=== PATIENT | male | born 1975 | race Caucasian/White ===

== ENCOUNTER 2023-09-30 05:33 | Day surgery (SDC) | payer OTHER, SELFPAY ==
[2023-09-30] VITALS (8 sets, daily range): BP systolic 105–118; BP diastolic 67–80; PULSE 53–72; RESP 16; TEMP 36.2–36.6; O2SAT 94–100
[2023-09-30] MEDS: Lactated Ringers 1,000 ML 15 ML IV (05:54)
--- NOTE | 2023-09-30 06:35 | PCM.PRE.AN2 ---
ASA Classification* ASA Classification ASA Classification: 2 Assessment & Plan Anesthesia* Anesthesia Assessment Anesthesia Assessment: Discussed sedation and/or anesthesia options, risks, benefits, and alternatives with patient/parents/legal guardian/POA. Questions invited. The patient/parents/legal guardian/POA seems to understand and agrees to proceed with anesthesia plan. Reviewed the physical assessment, medical history, allergy history and patient home medications list prior to surgery/procedure/anesthetic and documented any changes. Performed airway and anesthesia risk assessments. 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 When Was Last Pacemaker Check QUESTION #4 FULL TEXT: You/Your Family Experience fever (hyperthermia) with Anesthesia Last Oral Intake Last Oral intake: Last Oral Intake NPO since 22:00 09/30/23 05:52 Meds taken in AM with sips of water? Meds patient instructed to take am of surgery PONV PONV - insulation sprayer: PONV - insulation sprayer Female No 09/25/23 13:08 HX of Motion Sickness No 09/25/23 13:08 HX of N/V After Surgery No 09/25/23 13:08 Non-Smoker Yes 09/25/23 13:08 Duration of Surgery greater No 09/25/23 13:08 than 60 minutes Number of Risk Factors 1 09/25/23 13:08 PONV Score Low Risk 09/25/23 13:08 Height & Weight Height & Weight: Anesthesia: Height & Weight Height 6 ft 5 in 09/30/23 05:52 Respiratory Assessment Respiratory Assessment - insulation sprayer: Respiratory Tract Infection Hx - insulation sprayer Hx Respiratory Tract Infection No 09/25/23 13:08 STOP Sleep Apnea STOP Sleep Apnea - insulation sprayer: STOP Sleep Apnea - insulation sprayer Hx Hypertension No 09/25/23 13:08 Hx Sleep Apnea No 09/25/23 13:08 CPAP BIPAP Do you snore loudly (louder No 09/25/23 13:08 than talking or can be heard Do you often feel tired/ No 09/25/23 13:08 fatigued/ sleepy during daytime? Has anyone observed you stop No 09/25/23 13:08 breathing during sleep? STOP Results Negative 09/25/23 13:08 QUESTION #5 FULL TEXT : Do you snore loudly (louder than talking or can be heard through closed doors)? 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 Specify any problems Hx of Preganancy in last 3 N/A 09/25/23 13:08 Months Nurse Filling Out Transfusion NBUCHER 09/25/23 13:08 & Questions: Date: 09/25/23 09/25/23 13:08 Time: 13:09 09/25/23 13:08 Patient unable to answer at this time (ie. confused, unrespo /Reproduction History /Reproductive History - insulation sprayer: /Reproductive Hx- insulation sprayer Hx Now No 09/25/23 13:08 Gestational Age (in weeks): EDC: Hx Hx Para Hx Section SAB No 09/25/23 13:08 Active Medications Active Medications: Current Medications Generic Name Dose Route Start Last Admin Trade Name Freq PRN Reason Stop Dose Admin Lactated Ringer's 1,000 mls @ 15 mls/hr 09/30/23 05:45 09/30/23 05:54 IV 15 mls/hr .Q48H JAGUAR Administration PFSH Medical History Non-smoker HTN (hypertension) Anal fissure Home Medications ?Medication ?Instructions ?Recorded ?Last Taken ?Type NK 08/13/23 Unknown History Allergy/AdvReac Type Severity Reaction Status Date / Time No Known Allergies Allergy Verified 09/30/23 05:52 Surgical History Hx of colonoscopy Social History current occupational status: employed Smoking Status: Never smoker substance use type: does not use Review of Systems (Anesthesia) ROS Narrative System reviewed and no additional complaints, except as documented.
--- NOTE | 2023-09-30 06:39 | PCM.HP.STD ---
[facility] - General General Date of Admission: 09/30/23 Date of Service: 09/30/23 Chief Complaint: Screening colonoscopy HPI Narrative LEYDI HOWELL, is a 47 M who presents today for screening colonoscopy. He has no significant past medical history and does not take any medicines on a daily basis. He does not have any abdominal pain, cramping, bleeding, chest pain, shortness of breath. Overall is in very good health. [facility] Medical History Non-smoker HTN (hypertension) Anal fissure Home Medications ?Medication ?Instructions ?Recorded ?Last Taken ?Type NK 08/13/23 Unknown History Allergy/AdvReac Type Severity Reaction Status Date / Time No Known Allergies Allergy Verified 09/30/23 05:52 Surgical History Hx of colonoscopy Social History current occupational status: employed Smoking Status: Never smoker substance use type: does not use ROS Review of Systems ROS Unobtainable: other Constitutional Constitutional: Denies fatigue, fever(s), poor appetite, weight gain or weight loss ENT HEENT: Denies mouth lesions Cardiovascular Cardiovascular: Denies abdominal bloating, abdominal edema or abdominal pain Respiratory/Chest Respiratory/Chest: Denies change in mental status, change in phlegm color, chest congestion or chest tightness Gastrointestinal Gastrointestinal: Denies belching, bloating, change in bowel habits, change in stool character, chewing difficulty, coffee ground emesis, constipation, cramping, diarrhea, dyspepsia, dysphagia, early satiety, excessive flatus, fecal incontinence, heartburn, hematemesis, hematochezia, hemorrhoids, loose stools, melena, nausea, odynophagia, rectal bleeding, tenesmus, vomiting or weight changes Genitourinary Genitourinary: Denies abdominal discomfort, burning urination or itching Musculoskeletal Musculoskeletal: Reports as per HPI; Denies muscle weakness or myalgias Integumentary Integumentary: Denies jaundice Neurologic Neurologic: Denies lack of coordination or weakness Psychiatric Psychiatric: Denies confusion, depression, memory loss, mood swings, paranoia or suicidal ideation Endocrine Endocrinology: Denies systems reviewed and no addt'l complaints, except as documented Hematologic/Lymphatic Hematologic/Lymphatic: Denies anemia, easy bleeding, easy bruising or lymphadenopathy Allergic/Immunologic Allergic/Immunologic: Denies systems reviewed and no addt'l complaints, except as documented Vital Signs Vital Signs Vital Signs: 09/30/23 05:52 09/30/23 05:52 09/30/23 06:35 Temperature 97.4 F L 97.4 F L Temperature Source Temporal Pulse Rate 58 L 58 L Respiratory Rate 16 16 Respiratory Pattern Normal Blood Pressure 116/80 116/80 Blood Pressure Mean 92 Blood Pressure Source Monitor Blood Pressure Position Semi-Fowlers Blood Pressure Location Left Arm Pulse Ox 100 100 Oxygen Delivery Method Room Air Physical Exam Const alert, oriented x3, no apparent distress, healthy appearing and well nourished General Appearance: cooperative, comfortable, well kempt and well developed Orientation / Consciousness: awake and oriented to person HEENT Head and Scalp: normocephalic and atraumatic Face and Sinus: normal facial exam Mouth: oral and palatal mucosa normal Eyes General Eye: normal appearance of both eyes Neck full ROM Lymph Lymphatic: no lymphadenopathy noted Chest inspection of chest normal Resp normal respiratory effort and no use of accessory muscles Cardio regular rate and regular rhythm GI normal to inspection, nondistended, normoactive bowel sounds, soft to palpation, non-tender, non-distended and no masses Auscultation: normoactive bowel sounds Palpation: soft Percussion: normal to percussion Rectal Exam: visual inspection normal and normal sphincter tone no CVA tenderness Back/Spine no CVA tenderness and normal ROM Extremity normal to inspection Peripheral Pulses: Yes pulses 2+ throughout Skin no rashes or lesions noted General Skin Exam: no breakdown, elasticity normal and turgor normal Neuro oriented x3 Motor Exam: strength 5/5 throughout Psych mental status grossly normal Appearance: grossly normal Attitude: calm Activity / Motor Behavior: appropriate eye contact Speech: normal speech Thought Process: normal thought process Thought Content: normal thought content Attention / Concentration: attention grossly intact Memory / Cognition: memory grossly intact Insight: insight good Judgement: judgement good Assessment & Plan Assessment/Plan (1) Encounter for screening for malignant neoplasm of colon: PLAN: He was explained alternatives including not withstanding bleeding, infection, sepsis, perforation, need for emergent surgery and . He will have an ASA of 2.
--- NOTE | 2023-09-30 07:00 | OP.CCLET_ITS ---
09/30/2023 Gabriel Desai Re : Colonoscopy procedure for Rachid Gonzalez Dear Jada This procedure was performed on Saturday, September 30, 2023. My impressions and recommendations are as follows: Impressions : - The entire examined colon is normal on direct and retroflexion views. - No specimens collected. Recommendations : - Discharge patient to home. - Resume previous diet. - Continue present medications. - Repeat colonoscopy in 10 years for screening purposes. My findings are described in the full procedure note, which is enclosed. If I can be of further assistance, please feel free to contact me at . Sincerely, Dominik Nichols, 09/30/2023 6:59:55 AM This report has been signed electronically.
--- NOTE | 2023-09-30 07:00 | OP.COLON_ITS ---
Patient Name: Rachid Gonzalez Procedure Date: 09/30/2023 6:24 AM Date of : 1975 Age: 47 Procedure: Colonoscopy Indications: Screening for colorectal malignant neoplasm Providers: Dominik Nichols DO Referring MD: Dominik Nichols DO Medicines: Monitored Anesthesia Care Patient Profile: This is a 47 year old male. Refer to note in patient chart for documentation of history and physical. Last Colonoscopy: none. The patient's first colonoscopy is today. Complications: No immediate complications. Procedure: Pre-Anesthesia Assessment: - Prior to the procedure, a History and Physical was performed, and patient medications and allergies were reviewed. The risks and benefits of the procedure and the sedation options and risks were discussed with the patient. All questions were answered and informed consent was obtained. Patient identification and proposed procedure were verified by the physician. Mental Status Examination: normal. Prophylactic Antibiotics: The patient does not require prophylactic antibiotics. Prior Anticoagulants: The patient has taken no anticoagulant or antiplatelet agents. After reviewing the risks and benefits, the patient was deemed in satisfactory condition to undergo the procedure. The anesthesia plan was to use monitored anesthesia care (MAC). Immediately prior to administration of medications, the patient was re-assessed for adequacy to receive sedatives. The heart rate, respiratory rate, oxygen saturations, blood pressure, adequacy of pulmonary ventilation, and response to care were monitored throughout the procedure. The physical status of the patient was re-assessed after the procedure. After I obtained informed consent, the scope was passed under direct vision. Throughout the procedure, the patient's blood pressure, pulse, and oxygen saturations were monitored continuously. The Colonoscope was introduced through the anus and advanced to the cecum, identified by appendiceal orifice and ileocecal valve. The colonoscopy was performed without difficulty. The patient tolerated the procedure well. The quality of the bowel preparation was adequate. The ileocecal valve, appendiceal orifice, and rectum were photographed. Scope In: 6:45:51 AM Scope Withdrawal Time 0 hours 7 minutes 53 seconds Scope Out: 6:55:51 AM Total Procedure Duration Time 0 hours 10 minutes 0 seconds Findings: The perianal and digital rectal examinations were normal. The entire examined colon appeared normal on direct and retroflexion views. Impression: - The entire examined colon is normal on direct and retroflexion views. - No specimens collected. Recommendation: - Discharge patient to home. - Resume previous diet. - Continue present medications. - Repeat colonoscopy in 10 years for screening purposes. Procedure Code(s): --- Professional --- G0121, Colorectal cancer screening; colonoscopy on individual not meeting criteria for high risk CPT copyright 2021 [employer]. All rights reserved. The codes documented in this report are preliminary and upon property disposal officer review may be revised to meet current compliance requirements. Dominik Nichols DO 09/30/2023 6:59:55 AM This report has been signed electronically. Number of Addenda: 0 Note Initiated On: 09/30/2023 6:24 AM
--- NOTE | 2023-09-30 07:05 | PCM.POST.ANE ---
Anesthesia: Postop Eval I Current Vital Signs Temperature: 97.2 F Pulse Rate: 72 Blood Pressure: 112/75 Respiratory Rate: 16 Pulse Ox: 100 Oxygen Delivery Method: Room Air Assessment Airway patent: Yes Spontaneous unlabored respirations: Yes Mental status: Awake and Calm nausea: No Vomiting: No Anesthesia Complication: No Fluid Hydration Crystalloid volume administer (ml): 600 Total IV fluid infused: 600 Progress Note Anesthesia document: Postop Eval 1 completed: Yes
--- NOTE | 2023-09-30 14:46 | PCM.POSTANE2 ---
Anesthesia Postop Eval I Sum Postop Eval Completion status Anesthesia document: Postop Eval 1 completed: Yes Anesthesia Postop Eval I Summary Anesthesia Postop Eval I Summary: Anesthesia Postop Eval I: Assessment Summary Airway patent Yes 09/30/23 07:06 [email or web address] Spontaneous unlabored Yes 09/30/23 07:06 [email or web address] respirations Mental status Awake,Calm 09/30/23 07:06 [email or web address] nausea No 09/30/23 07:06 [email or web address] Vomiting No 09/30/23 07:06 [email or web address] Anesthesia Postop Eval I: Fluid Summary Crystalloid volume administer 600 09/30/23 07:06 [email or web address] (ml) Colloids volume administered ( ml) Blood Product volume administered (ml) Total IV fluid infused 600 09/30/23 07:06 [email or web address] Anesthesia Postop Eval I: Summary Notes Anesthesia Complication No 09/30/23 07:06 [email or web address] Anesthesia Complication Comment: Post-operative progress note Anesthesia: Postop Eval II Evaluation Mental status: Awake and Calm Pain Level: 0 nausea: No Vomiting: No Complications Anesthesia Complication: No
== END 2023-09-30 07:44 | disposition home or self-care (01) ==
LOC: EN 05:36 → AC 05:36
PROVIDERS: PCP Physician Assistant; Referring Provider Physician Assistant; Visit Provider Internal Medicine Gastroenterology
PROC: 0DJD8ZZ Inspection of Lower Intestinal Tract, Via Natural or Artificial Opening Endoscopic (ICD-10-PCS; CPT 45378; principal; 2023-09-30 06:25)
DX: Z12.11 Encounter for screening for malignant neoplasm of colon (principal); I10 Essential (primary) hypertension
CPT/HCPCS: 45378; J7120; J2405